=== PATIENT | male | born 1950 | race Caucasian/White ===

== ENCOUNTER 2016-10-23 10:04 | Inpatient (IN) | payer BC ==
[~2016-10-23] VITALS: Ht 170.2 cm; Wt 75.0 kg
[2016-10-23 12:45] VITALS: Ht 170.2 cm; Wt 75.0 kg
[2016-10-23 13:07] LABS: ABNORMAL IP MESSAGE 1; BASOPHIL # 0.1 10^3/ul (0.0-0.1); BASOPHILS % 1.2 % (0.0-2.0); EOSINOPHILS # 0.3 10^3/ul (0.0-0.5); EOSINOPHILS % 6.3 % (0.0-7.0); HEMATOCRIT 19.6 % (42.0-52.0); LYMPHOCYTES # 0.5 10^3/ul (0.8-2.9); MEAN CORPUSCULAR HEMOGLOBIN 22.8 pg (29.0-33.0); MEAN CORPUSCULAR HGB CONC 31.6 g/dl (32.0-37.0); MEAN CORPUSCULAR VOLUME 72.1 fl (82.0-101.0); MEAN PLATELET VOLUME 11.1 fl (7.4-10.4); MONOCYTE # 0.7 10^3/ul (0.3-0.9); MONOCYTES % 16.4 % (0.0-11.0); NEUTROPHILS % 64.4 % (39.0-77.0); PLATELET COUNT 110 10^3/UL (140-415); RED BLOOD COUNT 2.72 10^6/ul (4.70-6.10); RED CELL DISTRIBUTION WIDTH 20.3 % (11.5-14.5); WHITE BLOOD COUNT 4.3 10^3/ul (4.8-10.8)
[2016-10-23] MEDS ORDERED: SOD CHLORIDE 0.9% 250 ML IV ONE (13:13)
[2016-10-23 13:15] LABS: CALCIUM 8.1 mg/dl (8.4-10.2); CREATININE 0.9 mg/dl (0.61-1.24); POTASSIUM 3.3 mmol/L (3.5-5.1)
[2016-10-23] MEDS: SOD CHLORIDE 0.9% 1,000 ML IV SCH ×6 (13:30→23:00)
[2016-10-23 13:35] LABS: HEMOGLOBIN 6.2 g/dl (14.0-18.0)
--- NOTE | 2016-10-23 13:45 | RADRPT ---
PROCEDURE: CT brain without contrast CLINICAL INDICATION: Fall, head pain TECHNIQUE: CT of the brain without contrast performed on a multidetector CT scanner, with multiplan ar reformats. One or more of the following dose reduction techniques were used: Automated exposure control, adjustment in mA and / or kV according to patient size, use of iterative reconstructive юлия hnique. CTDIvol = 44 mGy; DLP = of 630 mGy-cm. COMPARISON: None available FINDINGS: No acute intracranial hemorrhage is identified. No extra-axial fluid collection is seen. There is no mass effect. No midline shift is identified. The ventricles and sulci are mild to moderately enlarged compatible with generalized volume loss. There are mild to moderate areas of hypodensity in the periventricular - deep white matter which are nonspecific but suggestive of chronic small vessel ischemic changes. Hodge-white differentiation is preserved. Partly empty sella is noted. Atherosclerotic calcifications of the proximal intracranial arteries are noted. Calvarium and skull base are intact. Mastoids and paranasal sinuses are grossly clear. IMPRESSION: 1. No evidence of acute intracranial pathology. 2. Mild to moderate volume loss, with mild to moderate chronic small vessel ischemic changes. RPTAT: VV .Carlos Enrique Sarmiento MD, Date Time Electronically viewed and signed by .Carlos Enrique Sarmiento MD, on 10/23/2016 13:44 .O/
--- NOTE | 2016-10-23 14:07 | ERA ---
ER Documentation Chief Complaint Date/Time DATE: 10/23/16 TIME: 14:01 Chief Complaint HPI This is a 66-year-old male history of alcohol abuse who drinks daily who states that his last drink was this morning. He states that his girlfriend called 911 because he became too drunk and passed out. There is no report of seizure or shaking per EMS. The patient's Accu-Chek was normal. The patient also describes approximate 1 week of copious loose watery stools. The patient denies any melena. He states the stools are brown. No fevers or chills, no chest pain or shortness of breath, no hematemesis. The patient states that he feels dehydrated. He has had seizures in the past when he stops drinking. ROS All systems reviewed and are negative except as per history of present illness. PMhx/Soc Medical and Surgical Hx: pt denies Medical Hx, pt denies Surgical Hx Hx Alcohol Use: Yes (ETOH ABUSE) Hx Substance Use: No Hx Tobacco Use: No Smoking Status: Never smoker FmHx Family History: No diabetes Physical Exam Vitals Vital Signs Date Time Temp Pulse Resp B/P Pulse Ox O2 Delivery O2 Flow Rate FiO2 10/23/16 13:12 98.5 81 20 138/80 100 Room Air Physical Exam General: Well developed, well nourished, no acute distress, Smells of alcohol and appears slightly intoxicated Head: Normocephalic, atraumatic. Eyes: Pupils equally reactive, EOM intact ENT: Very dry mucous membranes Neck: Supple, no lymphadenopathy Respiratory: Lungs clear bilaterally, no distress Cardiovascular: RRR, no murmurs, rubs, or gallops Abdominal: Soft, non-tender, non-distended, no peritoneal signs : Brown stool, diarrhea noted, no melena MSK: No edema, no unilateral swelling, 5/5 strength Neurologic: Alert and oriented, Slightly intoxicated, moving all extremities, normal speech, no focal weakness, no cerebellar signs Skin: No rash Psych: Normal mood Result Diagram: 10/23/16 1303 10/23/16 1303 Results 24 hrs Laboratory Tests Test 10/23/16 13:03 White Blood Count 4.310^3/ul Red Blood Count 2.7210^6/ul Hemoglobin 6.2g/dl Hematocrit 19.6% Mean Corpuscular Volume 72.1fl Mean Corpuscular Hemoglobin 22.8pg Mean Corpuscular Hemoglobin Concent 31.6g/dl Red Cell Distribution Width 20.3% Platelet Count 75628^3/UL Mean Platelet Volume 11.1fl Neutrophils % 64.4% Lymphocytes % 11.0% Monocytes % 16.4% Eosinophils % 6.3% Basophils % 1.2% Nucleated Red Blood Cells % 0.0/100WBC Neutrophils # (Manual) 2.810^3/ul Lymphocytes # 0.510^3/ul Monocytes # 0.710^3/ul Eosinophils # 0.310^3/ul Basophils # 0.110^3/ul Nucleated Red Blood Cells # 0.010^3/ul Sodium Level 112mmol/L Potassium Level 3.3mmol/L Chloride Level 78mmol/L Carbon Dioxide Level 20mmol/L Anion Gap 17 Blood Urea Nitrogen 8mg/dl Creatinine 0.90mg/dl Glucose Level 98mg/dl Calcium Level 8.1mg/dl Current Medications Medications (Trade) Dose Ordered Sig/Sanchez Route PRN Reason Start Time Stop Time Status Last Admin Dose Admin Sodium Chloride 250 ml @ 0 mls/hr Q0M ONCE IV 10/23/16 13:13 10/23/16 13:17 DC Sodium Chloride (NS) 1,000 ml @ 530 mls/hr Q1H54M IV 10/23/16 13:30 Procedures/MDM EKG, MONITORS, & DIAGNOSTIC IMAGING: EKG: I reviewed and interpreted a 12-lead EKG. Rhythm: Normal sinus rhythm Ectopy: None Intervals: No abnormalities ST segments: No elevations or depressions T waves: No contiguous inversions CT brain: No evidence of acute intracranial process per radiologist LAB INTERPRETATION: The patient has multiple laboratory abnormalities including pancytopenia, significant anemia, Hyponatremia and hypochloremia MEDICAL DECISION MAKING: The patient presents with a potential near syncopal episode versus alcohol intoxication. The patient additionally has significant and copious diarrhea of unclear significance. The patient appears to be significantly dehydrated. He also drank this morning. No signs or symptoms concerning for seizure. The patient is appropriate despite his slight intoxication he can localize. Given the patient's copious diarrhea and dehydration he will benefit from IV fluids, multivitamin and observation. ER COURSE: During the patient's ER course multiple laboratory abnormalities were notified including anemia, pancytopenia and hyponatremia. I believe this constellation of symptoms are consistent with the patient's alcohol abuse and significant dehydration. The patient's sodium is significantly yellow and the patient is at risk for seizure. However, he has normal mental status at this time and is localizing. He does not require hypertonic saline. The patient was given 1 L of saline and replacement rate of sodium is calculated at 530 mL's per hour. This will correct at 0.5 mmol/h. The patient was given oral thiamine and folic acid. Additionally, the patient has significant anemia. At this time no evidence of melanotic stool low concern for GI bleed. This is likely secondary to chronic alcohol abuse. The patient will benefit from a transfusion of 1 unit of packed red blood cells. I discussed with the patient and/or family the risks, benefits, alternatives of blood transfusion. This includes allergic reaction and infections including HIV and hepatitis. The patient and/or family were able to verbalize these risks , stated understanding. A document has been signed and placed in the chart. 1 unit of packed red blood cells will be initiated. The patient has no acute altered mental status and no evidence of active seizure. No indication for hypertonic saline. I kept the patient and/or family informed of laboratory and diagnostic imaging results throughout the emergency room course. DISPOSITION PLAN: The patient will benefit from ICU level of care given significant hyponatremia. CONSULTATION: Accepting care team and consultations: I discussed the current laboratory data, diagnostic imaging and emergency care provided. Admitting team: Dr. Turner was admitted this patient in the past Admitting team indication: Insurance directed Critical Care Note: Total time: 47 minutes Indication/Organ System Threat: Hyponatremia I spent the above amount of critical care time with the patient, not including billable procedures. This included chart review, consultations, repeat bedside evaluations, and titration of appropriate medications to prevent cardiopulmonary or respiratory collapse. Departure Diagnosis: Primary Impression: Alcoholic intoxication Qualified Code: F10.929 - Alcoholic intoxication with complication Additional Impressions: Pancytopenia Diarrhea with dehydration Hyponatremia Condition: Serious AISHWARYA ROWLEY MD Oct 23, 2016 14:07
[2016-10-23] MEDS ORDERED: NACL 0.9% 3 ML SYG IV SCH (18:00)
[2016-10-23] MEDS ORDERED: ONDANSETRON 4 MG INJ IV PRN (18:00)
[2016-10-23] MEDS ORDERED: ACETAMINOPHEN 325 MG TAB PO PRN (18:00)
--- NOTE | 2016-10-23 19:48 | HP ---
DATE OF ADMISSION: 10/23/2016 HISTORY OF PRESENT ILLNESS: The patient is a 66-year-old gentleman who was brought from home by EMS. Apparently the patient has a history of alcohol abuse and the patient's girlfriend called [id number]- because the patient had drank too much alcohol and passed out. On evaluation of the patient emergency room, the patient is awake was no noted seizure activity. The patient also stated that he has had 1 week of loose stools. Denies any melena. Patient denies any chest pain. Denies any shortness of breath. Denies any hematemesis. The patient has a history of seizures in the past. In the emergency room, the patient underwent a brain CT without contrast, which does not reveal any acute intracranial pathology. However, revealed mild- to-moderate volume loss with [id number] chronic small- vessel ischemic changes. The patient was noted to be anemic with hemoglobin as low as 6.2 and patient is in process of getting a blood transfusion. The patient also noted to be hyponatremic with sodium being 112. The patient underwent 12 lead EKG, which revealed normal sinus rhythm with no ST-segment elevation or depression. The patient was given IV fluids and patient will be admitted for further evaluation and management. PAST MEDICAL HISTORY: Patient denies having any past medical history. SURGICAL HISTORY: Patient denies having any surgeries in the past. SOCIAL HISTORY: Patient has a history of alcohol abuse. Stated that he drinks beer every day. The patient denies any illicit drug use. Denies any tobacco use. ALLERGIES: NO KNOWN ALLERGIES. HOME MEDICATION: No active prescriptions. REVIEW OF SYSTEMS: A 12 point review of system is negative unless what is mentioned in HPI. PHYSICAL EXAMINATION: GENERAL: Well-developed, well-nourished male in no acute distress. VITAL SIGNS: Temperature is 98.6, pulse is 92, blood pressure is 160/76, respiratory rate 20, oxygen saturation 100 percent on room air. HEENT: Head is atraumatic, normocephalic. Pupils equal, round, reactive to light and accommodation. Oral mucosa is pink and moist. NECK: Supple. No cervical lymphadenopathy noted. LUNGS: Clear bilaterally. No rhonchi, wheezes, rales noted. CARDIOVASCULAR: Regular rhythm and rate. No murmurs, gallops, clicks are noted. ABDOMEN: Protuberant, soft, nondistended, nontender. Bowel sounds present. EXTREMITIES: No edema, clubbing, cyanosis. NEUROLOGICAL: Patient is slightly intoxicated, however, alert and oriented to name and situation. Moves all extremities. LABORATORY DATA: On admission, CBC, white blood cells 4.3, hemoglobin 6.2, hematocrit 19.6, platelets 110. Chemistry, sodium is 112, potassium 3.3, chloride 78, carbon dioxide 20, anion gap of 17, BUN is 8, creatinine 0.9, glucose 97. ASSESSMENT AND PLAN: 1. Anemia. We will transfuse 2 units of packed red blood cells. Obtain stool. Will ask Dr. Calhoun to see patient in gastroenterology consultation. 2. Hyponatremia secondary to dehydration. Continue IV fluids. Dr. Lozada is asked to see patient in nephrology consultation. 3. Pancytopenia and diarrhea. Will obtain stool for Clostridium difficile. 4. Alcohol intoxication. Admit patient to telemetry floor. Continue IV fluids. Monitor electrolytes. We will start Protonix for peptic ulcer disease prophylaxis. Further recommendations based on clinical course. Plan of care discussed with Dr. Turner. Dictated By: Alondra Cruz NP /aime/scooter /Document#: [id number]
--- NOTE | 2016-10-23 20:00 | CONS ---
Date/Time of Note Date/Time of Note DATE: 10/23/16 TIME: 19:57 Assessment/Plan Assessment/Plan Additional Assessment/Plan 1. Anemia. 2. Hyponatremia secondary to dehydration 3. Pancytopenia and diarrhea. 4. Alcohol intoxication. Consultation Date/Type/Reason Admit Date/Time Date of Consultation: Oct 23, 2016 Type of Consultation: Renal Reason for Consultation Hyponatremia Referring Provider: BRUNA FERNANDO MD Hx of Present Illness 66-year-old gentleman who was brought from home by EMS. Apparently the patient has a history of alcohol abuse and the patient's girlfriend called -- because the patient had drank too much alcohol and passed out. Incidentally found to have serum Na level of 112 Given NS in ER. No hx of seizure activity. Mental status at baseline. Good UO. Constitutional: No requiring O2 Past Surgical History Past Surgical Hx: no surgical history Family History Significant Family History: no pertinent family hx Social History Alcohol Use: heavy Smoking Status: Never smoker Drug Use: none Exam/Review of Systems Vital Signs Vitals Vital Signs Date Time Temp Pulse Resp B/P Pulse Ox O2 Delivery O2 Flow Rate FiO2 10/23/16 18:45 92 18 140/72 99 Room Air 10/23/16 16:20 98.6 Exam Constitutional: alert, oriented, No distress Psych: nl mood/affect Head: atraumatic, normocephalic Eyes: EOMI, nl conjunctiva, No icteric Neck: No jvd Respiratory: clear to auscultation, No crackles/rales Cardiovascular: regular rate and rhythm, No edema Gastrointestinal: non-tender, soft, No ascites, No distended, No rebound or guarding Musculoskeletal: nl extremities to inspection, No muscle weakness Extremities: normal pulses Neurological: CADMIUM LIQUOR MAKER II-XII intact, nl mental status, nl speech, nl strength, No confused, No focal weakness, No lethargic Skin: nl turgor, No diaphoresis, No rash or lesions Results Result Diagram: 10/23/16 1303 10/23/16 1303 Results 24 hrs Laboratory Tests Test 10/23/16 13:03 10/23/16 14:17 White Blood Count 4.3 L Red Blood Count 2.72 L Hemoglobin 6.2 *L Hematocrit 19.6 L Mean Corpuscular Volume 72.1 L Mean Corpuscular Hemoglobin 22.8 L Mean Corpuscular Hemoglobin Concent 31.6 L Red Cell Distribution Width 20.3 H Platelet Count 110 L Mean Platelet Volume 11.1 H Neutrophils % 64.4 Lymphocytes % 11.0 L Monocytes % 16.4 H Eosinophils % 6.3 Basophils % 1.2 Nucleated Red Blood Cells % 0.0 Neutrophils # (Manual) 2.8 Lymphocytes # 0.5 L Monocytes # 0.7 Eosinophils # 0.3 Basophils # 0.1 Nucleated Red Blood Cells # 0.0 Sodium Level 112 *L Potassium Level 3.3 L Chloride Level 78 L Carbon Dioxide Level 20 L Anion Gap 17 H Blood Urea Nitrogen 8 Creatinine 0.90 Glucose Level 98 Calcium Level 8.1 L Ethyl Alcohol Level 134.0 Medications Medications Current Medications Sodium Chloride (NS) 1,000 ml @ 530 mls/hr Q1H54M IV Last administered on 10/23t 15:46; Admin Dose 530 MLS/HR; Start 10/23/16 at 13:30 Ondansetron HCl (Zofran Inj) 4 mg Q6H PRN IV NAUSEA AND/OR VOMITING; Start at 18:00 Acetaminophen (Tylenol Tab) 650 mg Q6H PRN PO PAIN LEVEL 1-3 OR FEVER; Start at 18:00 Pantoprazole (Protonix Tab) 40 mg DAILY@06 PO ; Start 10/24/16 at 06:00 TAWNY LANGE MD Oct 23, 2016 20:00
[2016-10-23 20:25] LABS: ABNORMAL IP MESSAGE 1; MEAN CORPUSCULAR HGB CONC 31.5 g/dl (32.0-37.0); MEAN PLATELET VOLUME 10.9 fl (7.4-10.4); PLATELET COUNT 114 10^3/UL (140-415); POSITIVE DIFF @See below; RED BLOOD COUNT 2.74 10^6/ul (4.70-6.10); RED CELL DISTRIBUTION WIDTH 20.9 % (11.5-14.5); WHITE BLOOD COUNT 3.9 10^3/ul (4.8-10.8)
[2016-10-23 20:30] LABS: HEMOGLOBIN 6.3 g/dl (14.0-18.0)
[2016-10-23 20:46] LABS: CALCIUM 8.3 mg/dl (8.4-10.2); CREATININE 0.88 mg/dl (0.61-1.24)
[2016-10-23 21:22] LABS: EOSINOPHILS % (M) 1 % (0.0-7.0); LYMPHOCYTES # 0.7 10^3/ul (0.8-2.9); MONOCYTE # 0.4 10^3/ul (0.3-0.9); MONOCYTES % (M) 10 % (0-11)
[2016-10-23 21:24] LABS: ANISOCYTOSIS 1+ (0-0); HYPOCHROMASIA 1+ (0-0)
[2016-10-23 21:25] LABS: PLATELET ESTIMATE DECREASED
[2016-10-24 00:07] LABS: HAAIG REFLEX REFLEX FILED
[2016-10-24 00:26] LABS: ALANINE AMINOTRANSFERASE 37 IU/L (13-69); ALBUMIN 3.4 g/dl (3.3-4.9); ALBUMIN/GLOBULIN RATIO 0.79; ALKALINE PHOSPHATASE 61 IU/L (42-121); ANION GAP 16 (8-16); ASPARTATE AMINO TRANSFERASE 61 IU/L (15-46); BLOOD UREA NITROGEN 9 mg/dl (7-20); CALCIUM 8.4 mg/dl (8.4-10.2); CARBON DIOXIDE 21 mmol/L (21-31); CHLORIDE 88 mmol/L (97-110); CREATININE 0.87 mg/dl (0.61-1.24); GLUCOSE 90 mg/dl (70-220); POTASSIUM 3.1 mmol/L (3.5-5.1); SODIUM 122 mmol/L (135-144); TOTAL PROTEIN 7.7 g/dl (6.1-8.1)
[2016-10-24] MEDS: SOD CHLORIDE 0.9% 1,000 ML IV SCH ×5 (00:54→08:30)
[2016-10-24 01:14] LABS: HEPATITIS B CORE ANTIBODY NEGATIVE (NEGATIVE)
--- NOTE | 2016-10-24 02:40 | CONS ---
DATE OF ADMISSION: 10/23/2016 DATE OF CONSULTATION: 05/23/[address] Turner, thank you for asking me to see Mr. Giang in GI consultation. HISTORY OF PRESENT ILLNESS: As you know, the patient is a 66- year-old male, who is admitted to the hospital because of the history that he has been drinking alcohol heavily and he was also found down on the floor at home. The patient to some extent is alert now. He says he drinks 20 cans of beer per day. He used to work at [employer]. He vomited some nonbloody material. No history of passing blood from the rectum, and no history of diarrhea and he was brought to the hospital by the girlfriend. No history of seizures. No history of vomiting blood. He, at this time is alert. He is unable to give significant history, although he says he has no abdominal pain. No other medical problems, he states . MEDICATION: He does not take any medications. REVIEW OF SYSTEMS: Also, he has no significant medical problems. PAST SURGICAL HISTORY: None. PHYSICAL EXAMINATION: GENERAL: Patient is a 66-year-old male, who at this time is alert, well built. He is afebrile. He does have some tremors of the outstretched extremities. HEART: Normal heart sounds. LUNGS: Normal breath sounds. ABDOMEN: Showed soft abdomen with no palpable masses. LABORATORY: WBC is 4.3, hemoglobin 6.2, hematocrit 19.6, MCV 72, platelet count 210,000. Potassium is 3.3, BUN is 8, creatinine 0.9, glucose 98. The chemistry in terms of liver panel is not available. CLINICAL IMPRESSION: 1. History of alcoholism. 2. History of fall. 3. History of a low sodium of 112, which could have resulted him in the fall. I do not know if he had any seizure disorder, because of the hyponatremia. 4. Severe anemia, rule out bleeding ulcer disease, esophageal varices, rule out gastrointestinal malignancy. PLAN: At this time, recommend CT scan of the abdomen. Correct the serum low-sodium of 112. Once the patient is stable, he will have upper and lower endoscopy. Once again, doctor, thank you for this consultation. Dictated By: Guzman Calhoun MD /aime/luanne /Document#: [id number] ; Dr. Turner
[2016-10-24 05:46] LABS: ABNORMAL IP MESSAGE 1; BASOPHIL # 0.1 10^3/ul (0.0-0.1); EOSINOPHILS # 0.2 10^3/ul (0.0-0.5); EOSINOPHILS % 4.6 % (0.0-7.0); HEMATOCRIT 23.7 % (42.0-52.0); HEMOGLOBIN 7.5 g/dl (14.0-18.0); LYMPHOCYTES # 0.6 10^3/ul (0.8-2.9); LYMPHOCYTES % 11.6 % (15.0-51.0); MEAN CORPUSCULAR HEMOGLOBIN 23.8 pg (29.0-33.0); MEAN CORPUSCULAR HGB CONC 31.6 g/dl (32.0-37.0); MEAN CORPUSCULAR VOLUME 75.2 fl (82.0-101.0); MEAN PLATELET VOLUME 10.5 fl (7.4-10.4); MONOCYTE # 0.8 10^3/ul (0.3-0.9); MONOCYTES % 15.8 % (0.0-11.0); NEUTROPHILS % 66.6 % (39.0-77.0); PLATELET COUNT 110 10^3/UL (140-415); POSITIVE DIFF @See below; RED BLOOD COUNT 3.15 10^6/ul (4.70-6.10); RED CELL DISTRIBUTION WIDTH 21.5 % (11.5-14.5); WHITE BLOOD COUNT 4.8 10^3/ul (4.8-10.8)
[2016-10-24 06:03] LABS: ALBUMIN 3.6 g/dl (3.3-4.9); ALBUMIN/GLOBULIN RATIO 0.87; BILIRUBIN,INDIRECT 1.3 mg/dl (0-1.1); BILIRUBIN,TOTAL 1.3 mg/dl (0.2-1.3); CALCIUM 8.5 mg/dl (8.4-10.2); CREATININE 0.98 mg/dl (0.61-1.24); MAGNESIUM 1.3 mg/dl (1.7-2.5); TOTAL PROTEIN 7.7 g/dl (6.1-8.1)
--- NOTE | 2016-10-24 08:34 | RADRPT ---
PROCEDURE: CT of the abdomen and pelvis without contrast CLINICAL INDICATION: liver disease. TECHNIQUE: Spiral CT images through the abdomen and pelvis without the use of contrast. The admin istered radiation dose is CTDI 13.19 and DLP 802.21. One or more of the following dose reduction te chniques were used: automated exposure control, adjustment of the mA and/or kV according to patient size, or use of iterative reconstruction technique. COMPARISON: None FINDINGS: Lack of oral and intravenous contrast somewhat limits evaluation. The lung bases are clear. No p leural or pericardial effusion is seen. There is a large hiatal hernia with most of the stomach in the chest.. The liver is normal in size and attenuation. Hypertrophy of the caudate lobe is noted. The spleen, adrenal glands and pancreas are normal in appearance. There are multiple small gallston es. No biliary ductal dilatation is seen.. The kidneys are normal in size and contour there is no e vidence of hydronephrosis or nephrolithiasis. The aorta is calcified and normal in caliber. Bilate ral internal iliac and femoral artery branches are diffusely calcified. There is no evidence for flakita wel obstruction, free air, or abscess. The appendix is not seen. There is colonic diverticulosis w ithout evidence of diverticulitis. No adenopathy or ascites is seen. The bladder wall is mildly thic kened. The prostate gland is enlarged. There are multiple pelvic phleboliths. Chronic T11, T12 com pression fractures are seen. There is a lytic lesion in the T12 superior endplate posteriorly may r epresent a Schmorl's node. Mild L4-5 anterolisthesis, moderate degenerative disk disease, severe ca nal stenosis and bilateral neural foraminal narrowing. Small sclerotic lesion is seen in the right iliac bone. IMPRESSION: Distended gallbladder with multiple small stones. No evidence of biliary ductal dilatation. Hypertrophy of the caudate lobe of the liver. Large hiatal hernia. Sigmoid diverticulosis without evidence of acute diverticulitis. Facet hypertrophy. Prostatic hypertrophy. Chronic T11 and T12 compression fractures. Lytic lesion in the superior T12 endplate likely Schmorl 's node. RPTAT: HCNS Mary Knapp Physician Date Time Electronically viewed and signed by Mary Knapp, Physician on 10/24/2016 08:34 CS/
[2016-10-24] MEDS: PANTOPRAZOLE (EC) 40 MG TAB PO SCH (09:37)
[2016-10-24] MEDS ORDERED: SOD CHLORIDE 0.9% 250 ML IV* ONE (11:05)
--- NOTE | 2016-10-24 16:36 | PN ---
Date/Time of Note Date/Time of Note DATE: 10/24/16 TIME: 16:28 Assessment/Plan VTE Prophylaxis VTE Prophylaxis Intervention: SCD's Lines/Catheters IV Catheter Type (from Nrs): Saline Lock Assessment/Plan Assessment/Plan 1. Anemia. - per GI - transfuse 1 unit of packed red blood - PENDING stool OB 2. Hyponatremia secondary to dehydration. Continue IV fluids. per nephrology 3. Pancytopenia and diarrhea. - stool for Clostridium difficile. 4. Alcohol intoxication. Protonix for peptic ulcer disease prophylaxis. Further recommendations based on clinical course. Plan of care discussed with Dr. Turner. Exam/Review of Systems Vital Signs Vitals Vital Signs Date Time Temp Pulse Resp B/P Pulse Ox O2 Delivery O2 Flow Rate FiO2 10/24/16 12:27 92 18 158/87 10/24/16 08:28 98 10/24/16 06:50 Room Air 10/24/16 05:46 98.4 Results Result Diagram: 10/24/16 0530 10/24/16 0530 Results 24 hrs Laboratory Tests Test 10/23/16 20:05 10/23/16 23:45 10/24/16 05:30 White Blood Count 3.9 L 4.8 # Red Blood Count 2.74 L 3.15 L Hemoglobin 6.3 *L 7.5 L Hematocrit 20.0 L 23.7 L Mean Corpuscular Volume 73.0 L 75.2 L Mean Corpuscular Hemoglobin 23.0 L 23.8 L Mean Corpuscular Hemoglobin Concent 31.5 L 31.6 L Red Cell Distribution Width 20.9 H 21.5 H Platelet Count 114 L 110 L Mean Platelet Volume 10.9 H 10.5 H Neutrophils % 66.6 Segmented Neutrophils % (Manual) 70 Lymphocytes % 11.6 L Lymphocytes % (Manual) 19 Monocytes % 15.8 H Monocytes % (Manual) 10 Eosinophils % 4.6 Eosinophils % (Manual) 1 Basophils % 1.0 Nucleated Red Blood Cells % 0.0 0.0 Neutrophils # (Manual) 3.2 Absolute Lymphocytes (Manual) 0.7 L Lymphocytes # 0.7 L 0.6 L Monocytes # 0.4 0.8 Absolute Monocytes (Manual) 0.3 Eosinophils # 0.0 0.2 Basophils # 0.1 Nucleated Red Blood Cells # 0.0 Pathologist Review (Hematology) Platelet Estimate DECREASED Hypochromasia 1+ Anisocytosis 1+ Macrocytosis 1+ Sodium Level 121 L 122 L 128 L Potassium Level 3.0 L 3.1 L 3.0 L Chloride Level 87 L 88 L 91 L Carbon Dioxide Level 22 21 22 Anion Gap 15 16 18 H Blood Urea Nitrogen 7 9 10 Creatinine 0.88 0.87 0.98 Glucose Level 94 90 91 Calcium Level 8.3 L 8.4 8.5 Total Bilirubin 1.0 1.3 Direct Bilirubin 0.00 0.00 Indirect Bilirubin 1.0 1.3 H Aspartate Amino Transf (AST/SGOT) 61 H 65 H Alanine Aminotransferase (ALT/SGPT) 37 39 Alkaline Phosphatase 61 64 Total Protein 7.7 7.7 Albumin 3.4 3.6 Globulin 4.30 H 4.10 H Albumin/Globulin Ratio 0.79 0.87 Hepatitis B Surface Antigen NEGATIVE Hepatitis B Core Total Antibody NEGATIVE Hepatitis C Antibody NEGATIVE Magnesium Level 1.3 L Medications Medications Current Medications Sodium Chloride (NS) 1,000 ml @ 530 mls/hr Q1H54M IV Last administered on 10/23 15:46; Admin Dose 530 MLS/HR; Start 10/23/16 at 13:30 Ondansetron HCl (Zofran Inj) 4 mg Q6H PRN IV NAUSEA AND/OR VOMITING; Start at 18:00 Acetaminophen (Tylenol Tab) 650 mg Q6H PRN PO PAIN LEVEL 1-3 OR FEVER; Start at 18:00 Pantoprazole (Protonix Tab) 40 mg DAILY@06 PO Last administered on 10/24/16 09 :37; Admin Dose 40 MG; Start 10/24/16 at 06:00 ROSARIO WOOD Oct 24, 2016 16:36
[2016-10-24] MEDS: THIAMINE 100 MG TAB PO SCH (17:00)
[2016-10-24] MEDS ORDERED: POTASSIUM CHLORIDE 250 ML IVPB ONE (17:00)
[2016-10-24] MEDS: FOLIC ACID 1 MG TAB PO SCH (17:00)
[2016-10-24 18:00] VITALS: TEMP 98.3
[2016-10-24 20:50] VITALS: PULSE 93
[2016-10-25] VITALS (12 sets, daily range): BP systolic 135–170; BP diastolic 68–85; PULSE 82–108; RESP 16–20
[2016-10-25] MEDS: PANTOPRAZOLE (EC) 40 MG TAB PO SCH (06:00)
[2016-10-25] MEDS: THIAMINE 100 MG TAB PO SCH (09:45)
[2016-10-25] MEDS: LORAZEPAM 2 MG INJ IV PRN ×2 (09:45→18:29)
[2016-10-25] MEDS: FOLIC ACID 1 MG TAB PO SCH (09:45)
[2016-10-25 10:27] LABS: ABNORMAL IP MESSAGE 1; BASOPHIL # 0.1 10^3/ul (0.0-0.1); BASOPHILS % 0.9 % (0.0-2.0); EOSINOPHILS # 0.5 10^3/ul (0.0-0.5); EOSINOPHILS % 7.2 % (0.0-7.0); HEMATOCRIT 28.4 % (42.0-52.0); HEMOGLOBIN 8.8 g/dl (14.0-18.0); LYMPHOCYTES % 14.5 % (15.0-51.0); MEAN CORPUSCULAR HEMOGLOBIN 24.3 pg (29.0-33.0); MEAN CORPUSCULAR VOLUME 78.5 fl (82.0-101.0); MEAN PLATELET VOLUME 11.7 fl (7.4-10.4); MONOCYTE # 1.3 10^3/ul (0.3-0.9); MONOCYTES % 20.4 % (0.0-11.0); NEUTROPHILS % 56.7 % (39.0-77.0); PLATELET COUNT 139 10^3/UL (140-415); POSITIVE DIFF @See below; RED BLOOD COUNT 3.62 10^6/ul (4.70-6.10); WHITE BLOOD COUNT 6.6 10^3/ul (4.8-10.8)
[2016-10-25 10:52] LABS: CALCIUM 9.3 mg/dl (8.4-10.2); CREATININE 1.04 mg/dl (0.61-1.24); POTASSIUM 3.4 mmol/L (3.5-5.1)
[2016-10-25] MEDS ORDERED: SODIUM CHLORIDE 1 GM TAB PO SCH (15:00)
--- NOTE | 2016-10-25 15:01 | CONS ---
Date/Time of Note Date/Time of Note DATE: 10/25/16 TIME: 15:00 Assessment/Plan Assessment/Plan Additional Assessment/Plan 1. Anemia. 2. Hyponatremia secondary to dehydration 3. Pancytopenia and diarrhea. 4. Alcohol intoxication. Na improved Asymptomatic Will start 2% saline, Na 126 in preparation for possible EGD tomorrow Repeat Na tonight and in am Consultation Date/Type/Reason Admit Date/Time Oct 23, 2016 at 19:15 Initial Consult Date 10/23/16 Type of Consultation: Renal Referring Provider: BRUNA FERNANDO MD 24 HR Interval Summary Free Text/Dictation Good UO, GI plans on Endoscopy. Constitutional: No requiring O2 Exam/Review of Systems Vital Signs Vitals Vital Signs Date Time Temp Pulse Resp B/P Pulse Ox O2 Delivery O2 Flow Rate FiO2 10/25/16 12:59 82 10/25/16 12:00 99.0 19 135/69 97 10/24/16 18:00 Room Air Intake and Output 10/24/16 10/24/16 10/25/16 15:00 23:00 07:00 Intake Total 350 ml 200 ml Balance 350 ml 200 ml Exam Constitutional: alert, oriented, No distress Eyes: EOMI Neck: No jvd Respiratory: clear to auscultation Cardiovascular: regular rate and rhythm, No edema Gastrointestinal: non-tender, soft Extremities: No pitting pedal edema Neurological: PROCESS EXCELLENCE MANAGER II-XII intact, nl mental status, No confused, No focal weakness, No lethargic Skin: No diaphoresis Results Result Diagram: 10/25/16 1002 10/25/16 0933 Results 24 hrs Laboratory Tests Test 10/24/16 17:00 10/25/16 09:33 10/25/16 10:02 Bedside Glucose 117 Sodium Level 126 L Potassium Level 3.4 L Chloride Level 94 L Carbon Dioxide Level 23 Anion Gap 12 Blood Urea Nitrogen 13 Creatinine 1.04 Glucose Level 107 Calcium Level 9.3 White Blood Count 6.6 # Red Blood Count 3.62 L Hemoglobin 8.8 L Hematocrit 28.4 L Mean Corpuscular Volume 78.5 L Mean Corpuscular Hemoglobin 24.3 L Mean Corpuscular Hemoglobin Concent 31.0 L Red Cell Distribution Width 22.0 H Platelet Count 139 #L Mean Platelet Volume 11.7 H Neutrophils % 56.7 Lymphocytes % 14.5 L Monocytes % 20.4 H Eosinophils % 7.2 H Basophils % 0.9 Nucleated Red Blood Cells % 0.0 Neutrophils # (Manual) 3.7 Lymphocytes # 1.0 Monocytes # 1.3 H Eosinophils # 0.5 Basophils # 0.1 Nucleated Red Blood Cells # 0.0 Medications Medications Current Medications Ondansetron HCl (Zofran Inj) 4 mg Q6H PRN IV NAUSEA AND/OR VOMITING; Start at 18:00 Acetaminophen (Tylenol Tab) 650 mg Q6H PRN PO PAIN LEVEL 1-3 OR FEVER; Start at 18:00 Pantoprazole (Protonix Tab) 40 mg DAILY@06 PO Last administered on 10/24/16 09 :37; Admin Dose 40 MG; Start 10/24/16 at 06:00 Thiamine HCl (Vitamin B1) 100 mg DAILY PO Last administered on 10/25/16 09:45; Admin Dose 100 MG; Start 10/24/16 at 17:00 Folic Acid (Folic Acid) 1 mg DAILY PO Last administered on 10/25/16 09:45; Admin Dose 1 MG; Start 10/24/16 at 17:00 Lorazepam (Ativan) 1 mg Q6H PRN PO ANXIETY; Start 10/24/16 at 17:00 Lorazepam (Ativan) 1 mg Q4H PRN IV AGITATION/ANXIETY Last administered on 09:45; Admin Dose 1 MG; Start 10/25/16 at 03:08 Sodium Chloride (Nacl) 1 gm BID PO Last administered on 10/25/16 14:25; Admin Dose 1 GM; Start 10/25/16 at 15:00 TAWNY LANGE MD Oct 25, 2016 15:01
[2016-10-25] MEDS ORDERED: WATER STERILE FOR IV ONE (16:00)
[2016-10-25] MEDS ORDERED: SODIUM CHLORIDE IV ONE (16:00)
--- NOTE | 2016-10-25 18:38 | PN ---
DATE: 10/25/2016 SUBJECTIVE DATA: The patient has no specific complaints. The patient admitted with severe anemia, hemoglobin 6.2 with low sodium of 112; now after the normal saline the sodium went up to 126. PHYSICAL EXAMINATION: GENERAL: The patient is alert. VITAL SIGNS: Normal. CLINICAL IMPRESSION: Severe anemia. Rule out Cornel disease. Rule out colorectal neoplasm. PLAN: At this time, I would recommend to normalize the sodium and subsequently the patient will have to have an EGD and a colonoscopy. Dictated By: Guzman Calhoun MD /aime/fátima /Document#: [id number] CC: Andre Turner MD;*[facility]*
[2016-10-25] MEDS: LORAZEPAM 0.5 MG TAB PO PRN (20:51)
[2016-10-25] MEDS ORDERED: hydrALAzine 20 MG INJ IV PRN (21:00)
[2016-10-25 21:14] LABS: CALCIUM 8.7 mg/dl (8.4-10.2); POTASSIUM 3.1 mmol/L (3.5-5.1)
[2016-10-25] MEDS: METOPROLOL 50 MG TAB PO SCH (22:18)
[2016-10-26] VITALS (11 sets, daily range): BP systolic 140–153; BP diastolic 78–87; PULSE 61–78; RESP 16–17
[2016-10-26] MEDS: LORAZEPAM 0.5 MG TAB PO PRN ×2 (03:00→10:47)
[2016-10-26] MEDS: PANTOPRAZOLE (EC) 40 MG TAB PO SCH (06:57)
[2016-10-26 07:15] LABS: CALCIUM 8.8 mg/dl (8.4-10.2); CREATININE 0.95 mg/dl (0.61-1.24)
[2016-10-26 07:39] LABS: POTASSIUM 2.9 mmol/L (3.5-5.1)
[2016-10-26] MEDS: THIAMINE 100 MG TAB PO SCH (08:26)
[2016-10-26] MEDS: POTASSIUM CHLORIDE (SR) 20 MEQ TAB PO SCH ×2 (08:26→14:12)
[2016-10-26] MEDS: METOPROLOL 50 MG TAB PO SCH ×2 (08:27→20:09)
[2016-10-26] MEDS: FOLIC ACID 1 MG TAB PO SCH (08:34)
--- NOTE | 2016-10-26 10:29 | PN ---
Date/Time of Note Date/Time of Note DATE: 10/26/16 TIME: 10:28 Assessment/Plan VTE Prophylaxis VTE Prophylaxis Intervention: other Lines/Catheters IV C[facility]ter Type (from [facility]): Saline Lock Urinary Cath still in place: No Assessment/Plan Chief Complaint/Hosp Course 1. Anemia. - per GI - transfuse 1 unit of packed red blood - PENDING stool OB 2. Hyponatremia secondary to dehydration. Continue IV fluids. per nephrology 3. Pancytopenia and diarrhea. - stool for Clostridium difficile. 4. Alcohol intoxication. Problems: Subjective 24 Hr Interval Summary Free Text/Dictation Patient is confused, related to delirium vs cirrhosis Exam/Review of Systems Vital Signs Vitals Vital Signs Date Time Temp Pulse Resp B/P Pulse Ox O2 Delivery O2 Flow Rate FiO2 10/26/16 08:30 78 10/26/16 04:42 98.9 16 144/78 99 10/24/16 18:00 Room Air Intake and Output 10/25/16 10/25/16 10/26/16 15:00 23:00 07:00 Intake Total 760 ml 500 ml Output Total 700 ml Balance 60 ml 500 ml Exam Constitutional: well developed Head: atraumatic, normocephalic Neck: supple Respiratory: diminished breath sounds Cardiovascular: regular rate and rhythm Gastrointestinal: non-tender, soft Extremities: normal pulses Results Result Diagram: 10/25/16 1002 10/26/16 0610 Results 24 hrs Laboratory Tests Test 10/25/16 20:39 10/26/16 06:10 10/26/16 07:11 Sodium Level 125 L 129 L Potassium Level 3.1 L 2.9 *L Chloride Level 93 L 98 Carbon Dioxide Level 22 21 Anion Gap 13 13 Blood Urea Nitrogen 11 10 Creatinine 1.00 0.95 Glucose Level 110 92 Calcium Level 8.7 8.8 Lab Scanned Report BLOOD TRANSFUSION Medications Medications Current Medications Ondansetron HCl (Zofran Inj) 4 mg Q6H PRN IV NAUSEA AND/OR VOMITING; Start at 18:00 Acetaminophen (Tylenol Tab) 650 mg Q6H PRN PO PAIN LEVEL 1-3 OR FEVER; Start at 18:00 Pantoprazole (Protonix Tab) 40 mg DAILY@06 PO Last administered on 10/26/16t 06: 57; Admin Dose 40 MG; Start 10/24/16 at 06:00 Thiamine HCl (Vitamin B1) 100 mg DAILY PO Last administered on 10/26/16 08:26; Admin Dose 100 MG; Start 10/24/16 at 17:00 Folic Acid (Folic Acid) 1 mg DAILY PO Last administered on 10/26/16 08:34; Admin Dose 1 MG; Start 10/24/16 at 17:00 Lorazepam (Ativan) 1 mg Q6H PRN PO ANXIETY Last administered on 10/26/16 03:00 ; Admin Dose 1 MG; Start 10/24/16 at 17:00 Lorazepam (Ativan) 1 mg Q4H PRN IV AGITATION/ANXIETY Last administered on 18:29; Admin Dose 1 MG; Start 10/25/16 at 03:08 Hydralazine HCl (Apresoline) 10 mg Q6H PRN IV ELEVATED BLOOD PRESSURE; Start at 21:00 Metoprolol Tartrate (Lopressor) 50 mg BID PO Last administered on 10/26/16 08: 27; Admin Dose 50 MG; Start 10/25/16 at 21:30 Potassium Chloride (Klor-Con 20) 40 meq Q6 PO Last administered on 10/26/16 08: 26; Admin Dose 40 MEQ; Start 10/26/16 at 08:00; Stop 10/26/16 at 12:01 ANGELO SCOTT Oct 26, 2016 10:29
[2016-10-26] MEDS: SOD CHLORIDE 0.9% 1,000 ML IV SCH (16:10)
[2016-10-26] MEDS ORDERED: PEG/ELECTROLYTES 4L BTL PO ONE (17:00)
--- NOTE | 2016-10-26 17:20 | PN ---
DATE: 10/26/2016 SUBJECTIVE DATA: The patient was originally admitted to the emergency room because of severe anemia. Hemoglobin 6.2 today. Yesterday's hemoglobin was 8.8, and the endoscopy was kept on hold because of sodium being 129, and potassium is 2.9. At this time, the endoscopy is put on hold because of low sodium, and I discussed this with Dr. Lozada so that we can improve the sodium level before we can do the upper endoscopy and lower endoscopy. OBJECTIVE DATA/PHYSICAL EXAMINATION: GENERAL: Patient is alert, not in distress. HEART: Normal heart sounds. RESPIRATORY: Normal breath sounds. ABDOMEN: Showed soft abdomen with no palpable masses. No tenderness. ASSESSMENT: 1. Severe anemia, rule out gastrointestinal (GI) causes. 2. Electrolyte imbalance. PLAN: At this time, recommend to correct the sodium level to be normal and then will do the EGD and the colonoscopy. Dictated By: Guzman Calhoun MD /aime/[facility] /Document#: [id number] CC: Javier Lozada MD;*End*
[2016-10-26] MEDS ORDERED: SODIUM CHLORIDE 1 GM TAB PO ONE (19:00)
--- NOTE | 2016-10-26 19:24 | CONS ---
Date/Time of Note Date/Time of Note DATE: 10/26/16 TIME: 19:23 Assessment/Plan Assessment/Plan Additional Assessment/Plan 1. Anemia. 2. Hyponatremia secondary to dehydration 3. Pancytopenia and diarrhea. 4. Alcohol intoxication. Na improved Asymptomatic Cont NS NACL tabs Repeat Na tonight and in am Consultation Date/Type/Reason Admit Date/Time Oct 23, 2016 at 19:15 Initial Consult Date 10/23/16 Type of Consultation: Renal Referring Provider: BRUNA FERNANDO MD Exam/Review of Systems Vital Signs Vitals Vital Signs Date Time Temp Pulse Resp B/P Pulse Ox O2 Delivery O2 Flow Rate FiO2 10/26/16 16:31 61 10/26/16 15:21 98.6 17 144/84 98 10/24/16 18:00 Room Air Intake and Output 10/25/16 10/25/16 10/26/16 15:00 23:00 07:00 Intake Total 760 ml 500 ml Output Total 700 ml Balance 60 ml 500 ml Exam Constitutional: No distress ENMT: mucosa pink and moist Neck: No jvd Respiratory: clear to auscultation Cardiovascular: regular rate and rhythm, No edema Gastrointestinal: soft Neurological: No lethargic Results Result Diagram: 10/25/16 1002 10/26/16 0610 Results 24 hrs Laboratory Tests Test 10/25/16 20:39 10/26/16 06:10 10/26/16 07:11 Sodium Level 125 L 129 L Potassium Level 3.1 L 2.9 *L Chloride Level 93 L 98 Carbon Dioxide Level 22 21 Anion Gap 13 13 Blood Urea Nitrogen 11 10 Creatinine 1.00 0.95 Glucose Level 110 92 Calcium Level 8.7 8.8 Lab Scanned Report BLOOD TRANSFUSION Medications Medications Current Medications Ondansetron HCl (Zofran Inj) 4 mg Q6H PRN IV NAUSEA AND/OR VOMITING; Start at 18:00 Acetaminophen (Tylenol Tab) 650 mg Q6H PRN PO PAIN LEVEL 1-3 OR FEVER; Start at 18:00 Pantoprazole (Protonix Tab) 40 mg DAILY@06 PO Last administered on 10/26/16 06: 57; Admin Dose 40 MG; Start 10/24/16 at 06:00 Thiamine HCl (Vitamin B1) 100 mg DAILY PO Last administered on 10/26/16 08:26; Admin Dose 100 MG; Start 10/24/16 at 17:00 Folic Acid (Folic Acid) 1 mg DAILY PO Last administered on 10/26/16 08:34; Admin Dose 1 MG; Start 10/24/16 at 17:00 Lorazepam (Ativan) 1 mg Q6H PRN PO ANXIETY Last administered on 10/26/16 10:47 ; Admin Dose 1 MG; Start 10/24/16 at 17:00 Lorazepam (Ativan) 1 mg Q4H PRN IV AGITATION/ANXIETY Last administered on 18:29; Admin Dose 1 MG; Start 10/25/16 at 03:08 Hydralazine HCl (Apresoline) 10 mg Q6H PRN IV ELEVATED BLOOD PRESSURE; Start at 21:00 Metoprolol Tartrate 50 mg 50 mg BID PO Last administered on 10/26/16 08:27; Admin Dose 50 MG; Start 10/25/16 at 21:30 Sodium Chloride (NS) 1,000 ml @ 100 mls/hr Q10H IV Last administered on 16:10; Admin Dose 100 MLS/HR; Start 10/26/16 at 16:00 Sodium Chloride (Nacl) 1 gm BID PO ; Start 10/26/16 at 21:00 TAWNY LNAGE MD Oct 26, 2016 19:24
[2016-10-26] MEDS: SODIUM CHLORIDE 1 GM TAB PO SCH (20:15)
[2016-10-26] MEDS: LORAZEPAM 2 MG INJ IV PRN (23:14)
[2016-10-27] VITALS (24 sets, daily range): BP systolic 100–183; BP diastolic 56–87; PULSE 56–69; RESP 12–22
[2016-10-27] MEDS: SOD CHLORIDE 0.9% 1,000 ML IV SCH ×2 (02:00→13:39)
[2016-10-27] MEDS: PANTOPRAZOLE (EC) 40 MG TAB PO SCH (05:41)
[2016-10-27] MEDS: LORAZEPAM 2 MG INJ IV PRN (06:43)
[2016-10-27] MEDS ORDERED: PROPOFOL 200 MG INJ ONE (07:00)
[2016-10-27] MEDS ORDERED: LIDOCAINE 2% (SDV) 5 ML INJ ONE (07:00)
[2016-10-27] MEDS: THIAMINE 100 MG TAB PO SCH (08:47)
[2016-10-27] MEDS: SODIUM CHLORIDE 1 GM TAB PO SCH ×2 (08:47→21:06)
[2016-10-27] MEDS: FOLIC ACID 1 MG TAB PO SCH (08:47)
[2016-10-27] MEDS: METOPROLOL 50 MG TAB PO SCH ×2 (08:48→21:07)
[2016-10-27 10:23] LABS: CALCIUM 9.1 mg/dl (8.4-10.2); POTASSIUM 3.4 mmol/L (3.5-5.1)
--- NOTE | 2016-10-27 11:16 | PN ---
Date/Time of Note Date/Time of Note DATE: 10/27/16 TIME: 11:16 Assessment/Plan VTE Prophylaxis VTE Prophylaxis Intervention: other Lines/Catheters [facility] Peripheral IV Urinary Cath still in place: No Assessment/Plan Chief Complaint/Hosp Course 1. Anemia. - per GI - transfuse 1 unit of packed red blood - PENDING stool OB 2. Hyponatremia secondary to dehydration. Continue IV fluids. per nephrology 3. Pancytopenia and diarrhea. - stool for Clostridium difficile. 4. Alcohol intoxication. Problems: Subjective 24 Hr Interval Summary Free Text/Dictation Patient remain altered, opens eyes to voice Exam/Review of Systems Vital Signs Vitals Vital Signs Date Time Temp Pulse Resp B/P Pulse Ox O2 Delivery O2 Flow Rate FiO2 10/27/16 08:13 65 10/27/16 07:18 97.7 18 151/77 100 10/24/16 18:00 Room Air Intake and Output 10/26/16 10/26/16 10/27/16 15:00 23:00 07:00 Intake Total 200 ml 1600 ml Output Total 500 ml Balance 200 ml 1100 ml Exam Constitutional: well developed Head: atraumatic, normocephalic Neck: supple Respiratory: diminished breath sounds Cardiovascular: regular rate and rhythm Gastrointestinal: non-tender, soft Extremities: normal pulses Results Result Diagram: 10/25/16 1002 10/27/16 0930 Results 24 hrs Laboratory Tests Test 10/27/16 09:30 Sodium Level 133 L Potassium Level 3.4 L Chloride Level 103 Carbon Dioxide Level 19 L Anion Gap 14 Blood Urea Nitrogen 14 Creatinine 1.00 Glucose Level 150 Calcium Level 9.1 Medications Medications Current Medications Ondansetron HCl (Zofran Inj) 4 mg Q6H PRN IV NAUSEA AND/OR VOMITING; Start at 18:00 Acetaminophen (Tylenol Tab) 650 mg Q6H PRN PO PAIN LEVEL 1-3 OR FEVER; Start at 18:00 Pantoprazole (Protonix Tab) 40 mg DAILY@06 PO Last administered on 10/26/16 06: 57; Admin Dose 40 MG; Start 10/24/16 at 06:00 Thiamine HCl (Vitamin B1) 100 mg DAILY PO Last administered on 10/27/16 08:47; Admin Dose 100 MG; Start 10/24/16 at 17:00 Folic Acid (Folic Acid) 1 mg DAILY PO Last administered on 10/27/16 08:47; Admin Dose 1 MG; Start 10/24/16 at 17:00 Lorazepam (Ativan) 1 mg Q6H PRN PO ANXIETY Last administered on 10/26/16 10:47 ; Admin Dose 1 MG; Start 10/24/16 at 17:00 Lorazepam (Ativan) 1 mg Q4H PRN IV AGITATION/ANXIETY Last administered on 06:43; Admin Dose 1 MG; Start 10/25/16 at 03:08 Hydralazine HCl (Apresoline) 10 mg Q6H PRN IV ELEVATED BLOOD PRESSURE; Start at 21:00 Metoprolol Tartrate 50 mg 50 mg BID PO Last administered on 10/27/16 08:48; Admin Dose 50 MG; Start 10/25/16 at 21:30 Sodium Chloride (NS) 1,000 ml @ 100 mls/hr Q10H IV Last administered on 16:10; Admin Dose 100 MLS/HR; Start 10/26/16 at 16:00 Sodium Chloride (Nacl) 1 gm BID PO Last administered on 10/27/16 08:47; Admin Dose 1 GM; Start 10/26/16 at 21:00 ANGELO SCOTT Oct 27, 2016 11:16
[2016-10-27] MEDS ORDERED: PROPOFOL 60 ML ONE (11:27)
--- NOTE | 2016-10-27 12:37 | OPPN ---
Date/Time of Note Date/Time of Note DATE: 10/27/16 TIME: 12:33 Proc Note GI Procedure date: Oct 27, 2016 Pre-procedure Diagnosis severec anemia r/o pud vs gi malignancy Post-procedure Diagnosis erosive gastritis nodularv gastritis hemorrhoids Operation Performed egd colonoscopy Surgeon: CEDRIC PATE MD Anesthesia Type: moderate sedation Anesthesiologist: CHARLOTTE CHINO Estimated blood loss: none Transfusion Required: no Specimens gastyric bx Grafts/Implants: none Grafts/Implants none Tubes/Drains none Complications: no Complications none Pt Condition post procedure: stable Disposition: PACU Indications severe anemia r/o eso varices pud gi neoplasm Operative\Procedure Findings egd colonoscopy CEDRIC PATE MD Oct 27, 2016 12:37
--- NOTE | 2016-10-27 12:57 | GILP ---
DATE OF PROCEDURE: 10/27/2016 PROCEDURE: Esophagogastroduodenoscopy. PREOPERATIVE DIAGNOSES: The patient presenting with history of severe anemia with a history of possible gastrointestinal bleeding. History of alcoholism, rule out esophageal varices. Peptic ulcer disease, gastritis. POSTOPERATIVE DIAGNOSES: 1. Large hiatal hernia. 2. Erosive gastritis of the fundus. 3. Nodularity of the gastric fundus. 4. Minimal antral erythema. 5. Biopsies were done to rule out Helicobacter pylori infection. DESCRIPTION OF PROCEDURE: After the informed written consent was obtained. The patient was asked to lie in the left lateral side. Intravenous anesthesia was given by anesthesiologist Dr. Eugene when the patient became somnolent, Olympus video upper endoscope was introduced into the oropharynx and then into the esophagus. The esophagus appeared normal with no mucosal abnormality. Large hiatal hernia was noted. Scope at this time was advanced into the stomach. Multiple erosions were noted in the gastric fundus. Some nodularity of the gastric fundus was noted. Antral erythema was noted id a mild degree. Duodenum appeared normal up to the end of the 3rd portion. Endoscope at this time was withdrawn and antrum, lesser curvature and the fundus was biopsied to rule out H pylori infection. The scope at this time was withdrawn and the procedure was terminated. PLAN: Recommend proton pump inhibitor therapy. Dictated By: Guzman Calhoun MD /aime/kathleen /Document#: [id number]
--- NOTE | 2016-10-27 13:03 | GILP ---
DATE OF PROCEDURE: 10/27/2016 PROCEDURE: Colonoscopy. PREOPERATIVE DIAGNOSES: Patient presenting with history of severe anemia with hemoglobin 6 to 7 g, history of alcoholism, rule out colorectal neoplasm. Rule out atrioventricular malformation, hemorrhoids, etc. POSTOP DIAGNOSES: Minimal to moderate degree of internal and external hemorrhoids. Suboptimal preparation. No polyps noted. Small polyps cannot be excluded. DESCRIPTION OF PROCEDURE: After the informed written consent was obtained. The patient was also in the left lateral side. Intravenous anesthesia was given by anesthesiologist, Dr. Keyes. When the patient became somnolent, Olympus video colonoscope was introduced into the rectum. The scope was advanced all the way to the cecum. Entire colon was examined. A lot of stool was noted along the colon. Large lesion is not seen. Small polyps cannot be excluded. Endoscope at this time was withdrawn, on the way out further evaluation was carried out. On retroflexion minimal internal hemorrhoids were noted. When the scope was withdrawn, moderate degree of external hemorrhoids were noted and the procedure was terminated. PLAN: Recommend further workup including a capsule endoscopy. Dictated By: Guzman Calhoun MD /aime/kathleen /Document#: [id number]
--- NOTE | 2016-10-27 14:06 | CONS ---
Date/Time of Note Date/Time of Note DATE: 10/27/16 TIME: 14:05 Assessment/Plan Assessment/Plan Additional Assessment/Plan 1. Anemia. 2. Hyponatremia secondary to dehydration 3. Pancytopenia and diarrhea. 4. Alcohol intoxication. Na improved now 133 Cont current Rx. Asymptomatic NACL tabs bid Repeat Na in am. Consultation Date/Type/Reason Admit Date/Time Oct 23, 2016 at 19:15 Initial Consult Date 10/23/16 Type of Consultation: Renal Referring Provider: BRUNA FERNANDO MD 24 HR Interval Summary Free Text/Dictation S/p Endoscopy Exam/Review of Systems Vital Signs Vitals Vital Signs Date Time Temp Pulse Resp B/P Pulse Ox O2 Delivery O2 Flow Rate FiO2 10/27/16 13:18 60 20 149/81 100 Room Air 10/27/16 13:02 3.0 10/27/16 12:17 98.6 Intake and Output 10/26/16 10/26/16 10/27/16 15:00 23:00 07:00 Intake Total 200 ml 1600 ml Output Total 500 ml Balance 200 ml 1100 ml Results Result Diagram: 10/25/16 1002 10/27/16 0930 Results 24 hrs Laboratory Tests Test 10/27/16 09:30 Sodium Level 133 L Potassium Level 3.4 L Chloride Level 103 Carbon Dioxide Level 19 L Anion Gap 14 Blood Urea Nitrogen 14 Creatinine 1.00 Glucose Level 150 Calcium Level 9.1 Medications Medications Current Medications Ondansetron HCl (Zofran Inj) 4 mg Q6H PRN IV NAUSEA AND/OR VOMITING; Start at 18:00 Acetaminophen (Tylenol Tab) 650 mg Q6H PRN PO PAIN LEVEL 1-3 OR FEVER; Start at 18:00 Pantoprazole (Protonix Tab) 40 mg DAILY@06 PO Last administered on 10/26/16 06: 57; Admin Dose 40 MG; Start 10/24/16 at 06:00 Thiamine HCl (Vitamin B1) 100 mg DAILY PO Last administered on 10/27/16 08:47; Admin Dose 100 MG; Start 10/24/16 at 17:00 Folic Acid (Folic Acid) 1 mg DAILY PO Last administered on 10/27/16 08:47; Admin Dose 1 MG; Start 10/24/16 at 17:00 Lorazepam (Ativan) 1 mg Q6H PRN PO ANXIETY Last administered on 10/26/16 10:47 ; Admin Dose 1 MG; Start 10/24/16 at 17:00 Lorazepam (Ativan) 1 mg Q4H PRN IV AGITATION/ANXIETY Last administered on 06:43; Admin Dose 1 MG; Start 10/25/16 at 03:08 Hydralazine HCl (Apresoline) 10 mg Q6H PRN IV ELEVATED BLOOD PRESSURE; Start at 21:00 Metoprolol Tartrate 50 mg 50 mg BID PO Last administered on 10/27/16 08:48; Admin Dose 50 MG; Start 10/25/16 at 21:30 Sodium Chloride (NS) 1,000 ml @ 100 mls/hr Q10H IV Last administered on 16:10; Admin Dose 100 MLS/HR; Start 10/26/16 at 16:00 Sodium Chloride (Nacl) 1 gm BID PO Last administered on 10/27/16 08:47; Admin Dose 1 GM; Start 10/26/16 at 21:00 TAWNY LANGE MD Oct 27, 2016 14:06
[2016-10-28] VITALS (11 sets, daily range): BP systolic 128–165; BP diastolic 72–79; PULSE 62–68; RESP 16–19
[2016-10-28] MEDS: LORAZEPAM 2 MG INJ IV PRN (00:36)
[2016-10-28] MEDS: PANTOPRAZOLE (EC) 40 MG TAB PO SCH (05:46)
[2016-10-28 07:13] LABS: ABNORMAL IP MESSAGE 1; HEMATOCRIT 28.2 % (42.0-52.0); HEMOGLOBIN 8.6 g/dl (14.0-18.0); MEAN CORPUSCULAR HEMOGLOBIN 24.3 pg (29.0-33.0); MEAN CORPUSCULAR HGB CONC 30.5 g/dl (32.0-37.0); MEAN CORPUSCULAR VOLUME 79.7 fl (82.0-101.0); MEAN PLATELET VOLUME 11.6 fl (7.4-10.4); PLATELET COUNT 174 10^3/UL (140-415); POSITIVE DIFF @See below; RED BLOOD COUNT 3.54 10^6/ul (4.70-6.10); RED CELL DISTRIBUTION WIDTH 22.9 % (11.5-14.5); WHITE BLOOD COUNT 6.7 10^3/ul (4.8-10.8)
[2016-10-28 07:29] LABS: CALCIUM 8.6 mg/dl (8.4-10.2); CREATININE 1.02 mg/dl (0.61-1.24); POTASSIUM 3.6 mmol/L (3.5-5.1)
[2016-10-28] MEDS: METOPROLOL 50 MG TAB PO SCH ×2 (08:10→20:15)
[2016-10-28] MEDS: SODIUM CHLORIDE 1 GM TAB PO SCH ×2 (08:10→20:14)
[2016-10-28] MEDS: THIAMINE 100 MG TAB PO SCH (08:10)
[2016-10-28] MEDS: FOLIC ACID 1 MG TAB PO SCH (08:11)
[2016-10-28 09:10] LABS: ANISOCYTOSIS 1+ (0-0); BASOPHILS % (M) 4 % (0-2); EOSINOPHILS % (M) 24 % (0-7); HYPOCHROMASIA 2+ (0-0); MICROCYTOSIS 1+ (0-0); MONOCYTES % (M) 7 % (0-11); MYELOCYTES % (M) 1 % (0-0); PLATELET ESTIMATE NORMAL; POIKILOCYTOSIS 2+ (0-0); POLYCHROMASIA 3+ (0-0)
--- NOTE | 2016-10-28 10:14 | PN ---
Date/Time of Note Date/Time of Note DATE: 10/28/16 TIME: 10:13 Assessment/Plan VTE Prophylaxis VTE Prophylaxis Intervention: other Lines/Catheters IV [facility] Type [facility]from [facility] Saline Lock Urinary Cath still in place: No Assessment/Plan Chief Complaint/Hosp Course 1. Anemia. - per GI - transfuse 1 unit of packed red blood - PENDING stool OB 2. Hyponatremia secondary to dehydration. Continue IV fluids. per nephrology 3. Pancytopenia and diarrhea. - stool for Clostridium difficile. 4. Alcohol intoxication. Problems: Subjective 24 Hr Interval Summary Free Text/Dictation Patient is awake now, able to respond appropriately. Exam/Review of Systems Vital Signs Vitals Vital Signs Date Time Temp Pulse Resp B/P Pulse Ox O2 Delivery O2 Flow Rate FiO2 10/28/16 08:10 67 10/28/16 07:56 98.5 18 152/79 99 10/27/16 13:18 Room Air 10/27/16 13:02 3.0 Intake and Output 10/27/16 10/27/16 10/28/16 15:00 23:00 07:00 Intake Total 75 ml 1440 ml Balance 75 ml 1440 ml Exam Constitutional: well developed Head: atraumatic, normocephalic Neck: supple Respiratory: diminished breath sounds Cardiovascular: regular rate and rhythm Gastrointestinal: non-tender, soft Extremities: normal pulses Results Result Diagram: 10/28/16 0609 10/28/16 0609 Results 24 hrs Laboratory Tests Test 10/28/16 06:09 White Blood Count 6.7 Red Blood Count 3.54 L Hemoglobin 8.6 L Hematocrit 28.2 L Mean Corpuscular Volume 79.7 L Mean Corpuscular Hemoglobin 24.3 L Mean Corpuscular Hemoglobin Concent 30.5 L Red Cell Distribution Width 22.9 H Platelet Count 174 # Mean Platelet Volume 11.6 H Neutrophils % Segmented Neutrophils % (Manual) 44 Band Neutrophils % (Manual) 2 Lymphocytes % Lymphocytes % (Manual) 19 Monocytes % Monocytes % (Manual) 7 Eosinophils % Eosinophils % (Manual) 24 H Basophils % Basophils % (Manual) 4 H Myelocytes % (Manual) 1 H Nucleated Red Blood Cells % 0.0 Neutrophils # (Manual) 3.0 Band Neutrophils # 0.1 Absolute Lymphocytes (Manual) 1.2 Lymphocytes # Monocytes # Absolute Monocytes (Manual) 0.4 Eosinophils # Basophils # Basophils # (Manual) 0.2 H Myelocytes # 0.0 Nucleated Red Blood Cells # Platelet Estimate NORMAL Polychromasia 3+ Hypochromasia 2+ Poikilocytosis 2+ Anisocytosis 1+ Microcytosis 1+ Sodium Level 129 L Potassium Level 3.6 Chloride Level 100 Carbon Dioxide Level 20 L Anion Gap 13 Blood Urea Nitrogen 17 Creatinine 1.02 Glucose Level 90 # Calcium Level 8.6 Medications Medications Current Medications Ondansetron HCl (Zofran Inj) 4 mg Q6H PRN IV NAUSEA AND/OR VOMITING; Start at 18:00 Acetaminophen (Tylenol Tab) 650 mg Q6H PRN PO PAIN LEVEL 1-3 OR FEVER; Start at 18:00 Pantoprazole (Protonix Tab) 40 mg DAILY@06 PO Last administered on 10/28/16 05: 46; Admin Dose 40 MG; Start 10/24/16 at 06:00 Thiamine HCl (Vitamin B1) 100 mg DAILY PO Last administered on 10/28/16 08:10; Admin Dose 100 MG; Start 10/24/16 at 17:00 Folic Acid (Folic Acid) 1 mg DAILY PO Last administered on 10/28/16 08:11; Admin Dose 1 MG; Start 10/24/16 at 17:00 Lorazepam (Ativan) 1 mg Q6H PRN PO ANXIETY Last administered on 10/26/16 10:47 ; Admin Dose 1 MG; Start 10/24/16 at 17:00 Lorazepam (Ativan) 1 mg Q4H PRN IV AGITATION/ANXIETY Last administered on 00:36; Admin Dose 1 MG; Start 10/25/16 at 03:08 Hydralazine HCl (Apresoline) 10 mg Q6H PRN IV ELEVATED BLOOD PRESSURE; Start at 21:00 Metoprolol Tartrate (Lopressor) 50 mg BID PO Last administered on 10/28/16 08: 10; Admin Dose 50 MG; Start 10/25/16 at 21:30 Sodium Chloride (Nacl) 1 gm BID PO Last administered on 10/28/16 08:10; Admin Dose 1 GM; Start 10/26/16 at 21:00 ANGELO SCOTT Oct 28, 2016 10:14
--- NOTE | 2016-10-28 16:30 | PN ---
DATE: 10/28/2016 SUBJECTIVE DATA: The patient admitted with severe anemia and I performed upper endoscopy and lower endoscopy which showed evidence of significant gastritis and gastroesophageal reflux disease. No esophageal varices noted. A hiatal hernia was noted. The colonoscopy was unremarkable. LABORATORY AND DIAGNOSTIC DATA: The latest laboratory workup, hemoglobin is 8.6, hematocrit 28.2, WBC 6700. The chemistry shows bilirubin of 1.3, AST 65, ALT 39, alk phos is 64, sodium 128, that was on 10/24, but sodium improved to 133 yesterday. IMPRESSION: 1. Severe anemia, etiology not known, probably alcoholic liver disease. 2. Alcoholic bone marrow suppression. 3. Gastritis 4. A small hole in the etiology of the source of the bleeding cannot be excluded. PLAN: Recommend small-bowel workup as an outpatient. Dictated By: Guzman Calhoun MD /aime/scooter /Document#: [id number]
--- NOTE | 2016-10-28 17:15 | CONS ---
Date/Time of Note Date/Time of Note DATE: 10/28/16 TIME: 17:14 Assessment/Plan Assessment/Plan Additional Assessment/Plan 1. Anemia. 2. Hyponatremia secondary to dehydration 3. Pancytopenia and diarrhea. 4. Alcohol intoxication. Na 129 Cont current Rx. Asymptomatic NACL tabs bid Repeat Na in am. Consultation Date/Type/Reason Admit Date/Time Oct 23, 2016 at 19:15 Initial Consult Date 10/23/16 Type of Consultation: Renal Referring Provider: BRUNA FERNANDO MD 24 HR Interval Summary Constitutional: No requiring O2 Exam/Review of Systems Vital Signs Vitals Vital Signs Date Time Temp Pulse Resp B/P Pulse Ox O2 Delivery O2 Flow Rate FiO2 10/28/16 16:12 68 10/28/16 15:05 97.6 18 137/76 99 10/27/16 13:18 Room Air 10/27/16 13:02 3.0 Intake and Output 10/27/16 10/27/16 10/28/16 15:00 23:00 07:00 Intake Total 75 ml 1440 ml Balance 75 ml 1440 ml Exam Constitutional: No distress ENMT: mucosa pink and moist Neck: No jvd Respiratory: clear to auscultation Cardiovascular: regular rate and rhythm, No edema Gastrointestinal: soft Extremities: No edema Neurological: DIRECTOR DATA PROCESSING II-XII intact, nl mental status, No lethargic Results Result Diagram: 10/28/16 0609 10/28/16 0609 Results 24 hrs Laboratory Tests Test 10/28/16 06:09 White Blood Count 6.7 Red Blood Count 3.54 L Hemoglobin 8.6 L Hematocrit 28.2 L Mean Corpuscular Volume 79.7 L Mean Corpuscular Hemoglobin 24.3 L Mean Corpuscular Hemoglobin Concent 30.5 L Red Cell Distribution Width 22.9 H Platelet Count 174 # Mean Platelet Volume 11.6 H Neutrophils % Segmented Neutrophils % (Manual) 44 Band Neutrophils % (Manual) 2 Lymphocytes % Lymphocytes % (Manual) 19 Monocytes % Monocytes % (Manual) 7 Eosinophils % Eosinophils % (Manual) 24 H Basophils % Basophils % (Manual) 4 H Myelocytes % (Manual) 1 H Nucleated Red Blood Cells % 0.0 Neutrophils # (Manual) 3.0 Band Neutrophils # 0.1 Absolute Lymphocytes (Manual) 1.2 Lymphocytes # Monocytes # Absolute Monocytes (Manual) 0.4 Eosinophils # Basophils # Basophils # (Manual) 0.2 H Myelocytes # 0.0 Nucleated Red Blood Cells # Platelet Estimate NORMAL Polychromasia 3+ Hypochromasia 2+ Poikilocytosis 2+ Anisocytosis 1+ Microcytosis 1+ Sodium Level 129 L Potassium Level 3.6 Chloride Level 100 Carbon Dioxide Level 20 L Anion Gap 13 Blood Urea Nitrogen 17 Creatinine 1.02 Glucose Level 90 # Calcium Level 8.6 Medications Medications Current Medications Ondansetron HCl (Zofran Inj) 4 mg Q6H PRN IV NAUSEA AND/OR VOMITING; Start at 18:00 Acetaminophen (Tylenol Tab) 650 mg Q6H PRN PO PAIN LEVEL 1-3 OR FEVER; Start at 18:00 Pantoprazole (Protonix Tab) 40 mg DAILY@06 PO Last administered on 10/28/16 05: 46; Admin Dose 40 MG; Start 10/24/16 at 06:00 Thiamine HCl (Vitamin B1) 100 mg DAILY PO Last administered on 10/28/16 08:10; Admin Dose 100 MG; Start 10/24/16 at 17:00 Folic Acid (Folic Acid) 1 mg DAILY PO Last administered on 10/28/16 08:11; Admin Dose 1 MG; Start 10/24/16 at 17:00 Lorazepam (Ativan) 1 mg Q6H PRN PO ANXIETY Last administered on 10/26/16 10:47 ; Admin Dose 1 MG; Start 10/24/16 at 17:00 Lorazepam (Ativan) 1 mg Q4H PRN IV AGITATION/ANXIETY Last administered on 00:36; Admin Dose 1 MG; Start 10/25/16 at 03:08 Hydralazine HCl (Apresoline) 10 mg Q6H PRN IV ELEVATED BLOOD PRESSURE; Start at 21:00 Metoprolol Tartrate (Lopressor) 50 mg BID PO Last administered on 10/28/16 08: 10; Admin Dose 50 MG; Start 10/25/16 at 21:30 Sodium Chloride (Nacl) 1 gm BID PO Last administered on 10/28/16 08:10; Admin Dose 1 GM; Start 10/26/16 at 21:00 TAWNY LANGE MD Oct 28, 2016 17:15
[2016-10-29 00:01] VITALS: PULSE 64
[2016-10-29 00:13] VITALS: BP 134/70; RESP 19
[2016-10-29 04:02] VITALS: PULSE 62
[2016-10-29 04:24] VITALS: BP 125/66; RESP 19
[2016-10-29] MEDS: PANTOPRAZOLE (EC) 40 MG TAB PO SCH (06:02)
[2016-10-29 07:48] LABS: ABNORMAL IP MESSAGE 1; HEMATOCRIT 29.7 % (42.0-52.0); MEAN CORPUSCULAR HEMOGLOBIN 24.2 pg (29.0-33.0); MEAN CORPUSCULAR HGB CONC 30.3 g/dl (32.0-37.0); MEAN CORPUSCULAR VOLUME 79.8 fl (82.0-101.0); MEAN PLATELET VOLUME 11.1 fl (7.4-10.4); PLATELET COUNT 178 10^3/UL (140-415); POSITIVE DIFF @See below; RED BLOOD COUNT 3.72 10^6/ul (4.70-6.10); RED CELL DISTRIBUTION WIDTH 22.6 % (11.5-14.5); WHITE BLOOD COUNT 5.8 10^3/ul (4.8-10.8)
[2016-10-29 08:09] VITALS: PULSE 65
[2016-10-29 08:15] VITALS: BP 157/77; RESP 18
[2016-10-29] MEDS: SODIUM CHLORIDE 1 GM TAB PO SCH (08:23)
[2016-10-29] MEDS: METOPROLOL 50 MG TAB PO SCH (08:23)
[2016-10-29] MEDS: THIAMINE 100 MG TAB PO SCH (08:24)
[2016-10-29] MEDS: FOLIC ACID 1 MG TAB PO SCH (08:24)
[2016-10-29 08:33] LABS: CALCIUM 8.8 mg/dl (8.4-10.2); CREATININE 1.09 mg/dl (0.61-1.24); POTASSIUM 3.6 mmol/L (3.5-5.1)
[2016-10-29] MEDS ORDERED: LACTULOSE 30ML CUP PO SCH (09:00)
[2016-10-29 10:46] LABS: ANISOCYTOSIS 1+ (0-0); BASOPHILS % (M) 5 % (0-2); EOSINOPHILS % (M) 23 % (0-7); ERYTHROBLAST% (NRBC) (M) 1 % (0-0); GIANT THROMBO% (M) 3 % (0-0); HYPOCHROMASIA 1+ (0-0); MICROCYTOSIS 1+ (0-0); MONOCYTES % (M) 10 % (0-11); PLATELET ESTIMATE NORMAL; TEAR DROP CELLS 1+ (0-0)
--- NOTE | 2016-10-29 15:15 | DS ---
Date/Time of Note Date/Time of Note DATE: 10/29/16 TIME: 15:14 Discharge Summary Admission/Discharge Info Admit Date/Time Oct 23, 2016 at 19:15 Discharge Date/Time Oct 29, 2016 at 11:32 Hospital Course Patient left AMA. 1. Anemia. - per GI - transfuse 1 unit of packed red blood - PENDING stool OB 2. Hyponatremia secondary to dehydration. Continue IV fluids. per nephrology 3. Pancytopenia and diarrhea. - stool for Clostridium difficile. 4. Alcohol intoxication. Home Meds No Active Prescriptions or Reported Meds Primary Care Provider Andre Turner MD Time spent on discharge: < 30 minutes Pending Labs Laboratory Tests Test 10/29/16 07:09 White Blood Count 5.810^3/ul (4.8-10.8) Red Blood Count 3.7210^6/ul (4.70-6.10) Hemoglobin 9.0g/dl (14.0-18.0) Hematocrit 29.7% (42.0-52.0) Mean Corpuscular Volume 79.8fl (82.0-101.0) Mean Corpuscular Hemoglobin 24.2pg (29.0-33.0) Mean Corpuscular Hemoglobin Concent 30.3g/dl (32.0-37.0) Red Cell Distribution Width 22.6% (11.5-14.5) Platelet Count 57344^3/UL (140-415) Mean Platelet Volume 11.1fl (7.4-10.4) Neutrophils % % (39.0-77.0) Segmented Neutrophils % (Manual) 34% (39-77) Band Neutrophils % (Manual) 2% (0-4) Lymphocytes % % (15.0-51.0) Lymphocytes % (Manual) 25% (15-51) Monocytes % % (0.0-11.0) Monocytes % (Manual) 10% (0-11) Eosinophils % % (0.0-7.0) Eosinophils % (Manual) 23% (0-7) Basophils % % (0.0-2.0) Basophils % (Manual) 5% (0-2) Nucleated Red Blood Cells % 1% (0-0) Neutrophils # (Manual) 2.010^3/ul (1.7-7.5) Band Neutrophils # 0.110^3/ul (0.0-0.6) Absolute Lymphocytes (Manual) 1.410^3/ul (0.8-2.9) Lymphocytes # 10^3/ul (0.8-2.9) Monocytes # 10^3/ul (0.3-0.9) Absolute Monocytes (Manual) 0.510^3/ul (0.3-0.9) Eosinophils # 10^3/ul (0.0-0.5) Basophils # 10^3/ul (0.0-0.1) Basophils # (Manual) 0.210^3/ul (0.0-0.0) Nucleated Red Blood Cells # 10^3/ul (0.0-0.0) Thrombocytosis 3% (0-0) Platelet Estimate NORMAL Hypochromasia 1+ (0-0) Anisocytosis 1+ (0-0) Microcytosis 1+ (0-0) Tear Drop Cells 1+ (0-0) Sodium Level 129mmol/L (135-144) Potassium Level 3.6mmol/L (3.5-5.1) Chloride Level 98mmol/L (97-110) Carbon Dioxide Level 25mmol/L (21-31) Anion Gap 10 (8-16) Blood Urea Nitrogen 16mg/dl (7-20) Creatinine 1.09mg/dl (0.61-1.24) Glucose Level 98mg/dl (70-220) Calcium Level 8.8mg/dl (8.4-10.2) ROSARIO WOOD Oct 29, 2016 15:15
== END 2016-10-29 11:32 | disposition left against medical advice (07) | DRG 812 ==
LOC: E/R 12:24 → TEL 19:15
PROVIDERS: ADMIT Internal Medicine; ATTEND Internal Medicine
PROC: 0DB78ZX Excision of Stomach, Pylorus, Via Natural or Artificial Opening Endoscopic, Diagnostic (ICD-10-PCS; 2016-10-27)
PROC: 0DJD8ZZ Inspection of Lower Intestinal Tract, Via Natural or Artificial Opening Endoscopic (ICD-10-PCS; principal; 2016-10-27 11:30)
PROC: 0DB68ZX Excision of Stomach, Via Natural or Artificial Opening Endoscopic, Diagnostic (ICD-10-PCS; 2016-10-27 11:30)
DX: D64.9 Anemia, unspecified (principal); E87.1 Hypo-osmolality and hyponatremia; F10.229 Alcohol dependence with intoxication, unspecified; D61.818 Other pancytopenia; E86.0 Dehydration; R19.7 Diarrhea, unspecified; K64.8 Other hemorrhoids; K64.4 Residual hemorrhoidal skin tags; K44.9 Diaphragmatic hernia without obstruction or gangrene; K29.60 Other gastritis without bleeding
CPT/HCPCS: 36430; 70450; 74176; 80048; 80053; 80306; 82962; 83735; 85025; 86704; 86709; 86803; 86850; 86900; 86901; 86920; 87340; 93005; 97161; J2060; J3480; J7030; J7040; P9016

== ENCOUNTER 2017-12-02 06:14 | Day surgery (SDC) | END 2017-12-02 12:00 | disposition home or self-care (01) ==